=== PATIENT | male | born 1965 | race African-American/Black ===

== ENCOUNTER 2016-09-21 12:02 | Emergency (ER) | payer SELFPAY ==
[~2016-09-21] VITALS: Ht 175.3 cm; Wt 92.0 kg
[~2016-09-21 12:02] MED LIST: ATEN50TA PO; ATENOLOL; CARD12 PO; DILT180C3; LISI40TA4 PO; METF-240 PO; VASOTEC
[2016-09-21] MEDS ORDERED: KETOROLAC 30MG/ML VIAL IM ONE (13:15)
[2016-09-21 14:40] LABS: EOSINOPHILS % 1.8 % (0.0-5.0); HEMATOCRIT. 38.1 % (42.0-52.0); HEMOGLOBIN. 12.4 g/dL (14.0-18.0); LYMPHOCYTES % 26.9 % (20.0-50.0); MEAN CORPUSCULAR HEMOGLOBIN 32.2 pg (28.0-32.0); MEAN CORPUSCULAR HGB CONC 32.6 g/dL (31.0-37.0); MEAN CORPUSCULAR VOLUME 98.7 fL (80.0-94.0); MEAN PLATELET VOLUME 9.1 fl (7.4-10.4); MONOCYTES % 4.9 % (2.0-8.0); NEUTROPHILS % 65.4 % (40.0-76.0); PLATELET 214 x1000/uL (130-400); RED BLOOD CELL COUNT 3.86 mill/uL (4.7-6.1); RED CELL DISTRIBUTION WIDTH 13.4 % (11.6-14.6); WHITE BLOOD COUNT 6.7 x1000/uL (4.5-11.0)
[2016-09-21 14:55] LABS: ALANINE AMINOTRANSFERASE 28 IU/L (13-61); ALBUMIN 3.9 g/dL (3.4-5.0); ANION GAP 10; CALCIUM 9.1 mg/dL (8.5-10.1); CARBON DIOXIDE 31 mEq/L (21-32); CHLORIDE 108 mEq/L (98-107); INDEX HEMOLYSI 1 (1-3); INDEX ICTERIC 1 (1-4); INDEX LIPEMIC 1 (1-3); TROPONIN I < 0.02 ng/mL (0.00-0.04); UREA NITROGEN BLOOD 16 mg/dL (7-21); eGFR > 60 mL/min (>60)
[2016-09-21 15:46] VITALS: BP 155/96
== END 2016-09-21 17:28 | disposition home or self-care (01) ==
LOC: ER 14:35
DX: M25.512 Pain in left shoulder (principal); I10 Essential (primary) hypertension; E11.9 Type 2 diabetes mellitus without complications; F17.210 Nicotine dependence, cigarettes, uncomplicated
CPT/HCPCS: 36415; 73030; 80053; 84484; 85025; 93005; 96372; 99285; J1885

== ENCOUNTER 2017-02-18 18:32 | Emergency (ER) | payer SELFPAY ==
[~2017-02-18] VITALS: Ht 180.3 cm; Wt 80.0 kg
[~2017-02-18 18:32] MED LIST changes: -METF-240 PO; +METF500T4 PO
[2017-02-18] MEDS ORDERED: KETOROLAC 60MG/2ML VIAL IM ONE (20:45)
[2017-02-18 21:15] VITALS: BP 126/59
== END 2017-02-18 21:38 | disposition home or self-care (01) ==
LOC: ER 20:04
DX: M25.512 Pain in left shoulder (principal); I10 Essential (primary) hypertension; E11.9 Type 2 diabetes mellitus without complications
CPT/HCPCS: 96372; 99283; J1885; Z7610

== ENCOUNTER 2017-09-20 17:24 | Emergency (ER) | payer SELFPAY ==
[~2017-09-20] VITALS: Ht 177.8 cm; Wt 98.0 kg
[2017-09-20] MEDS ORDERED: DILTIAZEM HCL 180MG CAPSULE CD 24HR PO ONE (23:00)
[2017-09-20 23:41] LABS: BASOPHILS % 0.6 % (0.0-2.0); EOSINOPHILS % 2.1 % (0.0-5.0); HEMATOCRIT. 42.4 % (42.0-52.0); HEMOGLOBIN. 14.2 g/dL (14.0-18.0); LYMPHOCYTES % 34.4 % (20.0-50.0); MEAN CORPUSCULAR HEMOGLOBIN 32.6 pg (28.0-32.0); MEAN CORPUSCULAR VOLUME 97.2 fL (80.0-94.0); MEAN PLATELET VOLUME 9.5 fl (7.4-10.4); MONOCYTES % 7.2 % (2.0-8.0); NEUTROPHILS % 55.7 % (40.0-76.0); PLATELET 199 x1000/uL (130-400); RED BLOOD CELL COUNT 4.36 mill/uL (4.7-6.1); RED CELL DISTRIBUTION WIDTH 12.5 % (11.6-14.6)
[2017-09-20 23:47] LABS: CHLORIDE 108 mEq/L (98-107); INR 1.2; PARTIAL THROMBOPLASTIN TIME 27.1 sec (23.4-31.0)
[2017-09-21 02:44] VITALS: BP 145/83
== END 2017-09-21 02:46 | disposition home or self-care (01) ==
LOC: ER 19:40 → CANBEDREQ 09-21 05:53
DX: K57.92 Diverticulitis of intestine, part unspecified, without perforation or abscess without bleeding (principal); R51 Headache; I10 Essential (primary) hypertension; E11.9 Type 2 diabetes mellitus without complications; Z79.84 Long term (current) use of oral hypoglycemic drugs
CPT/HCPCS: 36415; 71045; 74176; 80053; 82962; 83690; 83880; 84484; 85025; 85610; 85730; 93005; 99285; Z7610